=== PATIENT | male | born 1960 | race Caucasian/White ===

== ENCOUNTER 2021-02-12 11:16 | Inpatient (IN) | payer MEDICARE ==
[~2021-02-12] VITALS: Ht 167.6 cm; Wt 125.0 kg
[2021-02-12 11:39] LABS: BASO # 0.1 10*3/uL (0.0-0.1); BASO % 0.7 % (0.0-1.0); EOS # 0.2 10*3/uL (0.0-0.4); EOS % 1.4 % (1.0-4.0); HEMATOCRIT 47.6 % (42.0-52.0); LYMPH % 8.8 % (27.0-41.0); MEAN CORPUSCULAR HGB 26.6 pg (27.0-31.0); MEAN CORPUSCULAR HGB CONC 31.3 g/dl (33.0-37.0); MEAN PLATELET VOLUME 9.8 fl (9.6-12.3); MONO # 0.8 10*3/uL (0.1-1.0); MONO % 6.4 % (3.0-9.0); NEUT # 9.6 10*3/uL (2.3-7.9); NEUT % 82.3 % (47.0-73.0); PLATELET COUNT AUTOMATED 241 10*3/uL (130-400); RED CELL DISTRI WIDTH 13.6 % (0-14.5); WHITE BLOOD COUNT 11.7 10*3/uL (4.8-10.8)
[2021-02-12 11:55] LABS: ALBUMIN 3.4 gm/dl (3.1-4.5); ALKALINE PHOSPHATASE 91 U/L (45-117); BUN 12 mg/dl (7-24); CHLORIDE 105 mmol/L (98-107); CREATININE 0.95 mg/dL (0.70-1.30); POTASSIUM 4.2 mmol/L (3.5-5.1); SGOT/AST 19 IU/L (3-35); SGPT/ALT 42 U/L (12-78); SODIUM 137 mmol/L (136-145)
[2021-02-12 11:56] LABS: TROPONIN I < 0.015 ng/ml (<0.045)
[2021-02-12 14:48] VITALS: BP 137/65
[2021-02-12 19:12] VITALS: BP 133/90
[2021-02-12 20:00] VITALS: BP 130/88
[2021-02-12] MEDS ORDERED: OSTEO BI-FLEX1 EACH PO (20:13)
[2021-02-12] MEDS ORDERED: IBUPROFEN IB200 M1 PO (20:15)
[2021-02-13] VITALS: BP 129/79
[2021-02-13 06:26] LABS: HEMATOCRIT 48.4 % (42.0-52.0); MEAN CELL VOLUME 84.2 fl (80.0-94.0); MEAN CORPUSCULAR HGB 26.6 pg (27.0-31.0); MEAN CORPUSCULAR HGB CONC 31.6 g/dl (33.0-37.0); MEAN PLATELET VOLUME 10.4 fl (9.6-12.3); PLATELET COUNT AUTOMATED 254 10*3/uL (130-400); RED BLOOD COUNT 5.75 10*6/uL (4.50-5.90); RED CELL DISTRI WIDTH 13.6 % (0-14.5); WHITE BLOOD COUNT 12.4 10*3/uL (4.8-10.8)
[2021-02-13 06:47] LABS: ALBUMIN 3.3 gm/dl (3.1-4.5); BUN 14 mg/dl (7-24); CHLORIDE 106 mmol/L (98-107); CHOLESTEROL 203 mg/dL (<200); CREATININE 1.11 mg/dL (0.70-1.30); POTASSIUM 3.9 mmol/L (3.5-5.1); SGOT/AST 18 IU/L (3-35); SGPT/ALT 38 U/L (12-78); SODIUM 138 mmol/L (136-145); TOTAL PROTEIN 7.3 gm/dL (6.4-8.2); TRIGLYCERIDES 110 mg/dl (<150)
[2021-02-13 06:48] LABS: ALKALINE PHOSPHATASE 96 U/L (45-117); LDL CHOLESTEROL 126 mg/dL (9-159)
[2021-02-13 07:23] LABS: TOTAL CELLS COUNTED 100 #CELLS
[2021-02-13 07:24] LABS: PLATELET SUFFICIENCY NORMAL (NORMAL)
[2021-02-13 08:00] VITALS: BP 145/92
[2021-02-13 08:05] VITALS: BP 130/86
[2021-02-13 08:41] LABS: VITAMIN D, 25-HYDROXY 33.9 ng/mL (30-100)
[2021-02-13 12:00] VITALS: BP 141/82
[2021-02-13 16:00] VITALS: BP 122/76
[2021-02-13 20:00] VITALS: BP 113/83
[2021-02-14] VITALS: BP 130/88
[2021-02-14 06:27] LABS: BASO % 0.2 % (0.0-1.0); HEMATOCRIT 48.7 % (42.0-52.0); LYMPH # 1.2 10*3/uL (1.3-4.4); LYMPH % 6.3 % (27.0-41.0); MEAN CELL VOLUME 85.6 fl (80.0-94.0); MEAN CORPUSCULAR HGB 27.1 pg (27.0-31.0); MEAN CORPUSCULAR HGB CONC 31.6 g/dl (33.0-37.0); MEAN PLATELET VOLUME 10.3 fl (9.6-12.3); NEUT # 16.9 10*3/uL (2.3-7.9); NEUT % 87.8 % (47.0-73.0); PLATELET COUNT AUTOMATED 258 10*3/uL (130-400); RED BLOOD COUNT 5.69 10*6/uL (4.50-5.90); RED CELL DISTRI WIDTH 14.1 % (0-14.5); WHITE BLOOD COUNT 19.2 10*3/uL (4.8-10.8)
[2021-02-14 06:44] LABS: BUN 15 mg/dl (7-24); CHLORIDE 109 mmol/L (98-107); CREATININE 0.84 mg/dL (0.70-1.30); SODIUM 140 mmol/L (136-145)
[2021-02-14 08:00] VITALS: BP 138/106
[2021-02-14 08:30] VITALS: BP 140/90
[2021-02-14] MEDS ORDERED: PREDNISONE10 MG PO (10:52)
[2021-02-14] MEDS ORDERED: LEVOFLOXACIN750 M2 PO (10:52)
== END 2021-02-14 11:51 | disposition home or self-care (01) | DRG 871 ==
LOC: ED 11:16 → EDHOLD 15:59 → 5E 15:59
PROVIDERS: Emergency Medicine; Hospitalist; ADMIT Internal Medicine; ATTEND Internal Medicine
DX: A41.9 Sepsis, unspecified organism (principal); J18.9 Pneumonia, unspecified organism; E87.2 Acidosis; Z68.41 Body mass index [BMI] 40.0-44.9, adult; E83.39 Other disorders of phosphorus metabolism; D72.829 Elevated white blood cell count, unspecified; Z79.899 Other long term (current) drug therapy

== ENCOUNTER 2021-05-10 05:28 | Emergency (ER) | payer MEDICARE ==
[~2021-05-10] VITALS: Ht 167.6 cm; Wt 127.0 kg
[~2021-05-10 05:28] MED LIST: IBUPROFEN IB200 M1 PO; LEVOFLOXACIN750 M2 PO; OSTEO BI-FLEX1 EACH PO; PREDNISONE10 MG PO
== END 2021-05-10 06:32 | disposition home or self-care (01) ==
LOC: ED 05:28
DX: S05.02XA Injury of conjunctiva and corneal abrasion without foreign body, left eye, initial encounter (principal); W22.8XXA Striking against or struck by other objects, initial encounter; Y93.89 Activity, other specified; Y92.89 Other specified places as the place of occurrence of the external cause; Y99.8 Other external cause status